=== PATIENT | female | born 1985 | race Caucasian/White ===

== ENCOUNTER 2022-02-21 11:00 | Outpatient (CLI) | payer OTHER, SELFPAY | END 2022-02-21 11:01 | disposition home or self-care (01) | LOC: NFLDREF 03-02 10:11 | PROVIDERS: Visit Provider Obstetrics & Gynecology | DX: Z34.93 Encounter for supervision of normal pregnancy, unspecified, third trimester (principal); Z3A.36 36 weeks gestation of pregnancy | CPT/HCPCS: 87081; 87653 ==

== ENCOUNTER 2022-03-15 01:11 | Inpatient (IN) | payer OTHER, SELFPAY ==
[2022-03-15] VITALS (46 sets, daily range): BP systolic 96–133; BP diastolic 52–80; PULSE 70–107; RESP 16; TEMP 36.5–37.1; O2SAT 96–100; BMI 30.9
[2022-03-15] MEDS: LACTATED RINGERS 1000 ML 1,000 ML 125 ML IV ×2 (01:41→03:26)
[2022-03-15] MEDS: AMPICILLIN 2 GM in 0.9 % SODIUM CHLORIDE Mini-bag 100 ML IVPB (01:42)
[2022-03-15 02:19] LABS: SARS PCR* Negative SARS-CoV-2 (Negative)
[2022-03-15] MEDS: ROPIVACAINE 0.2% 100 ml 100 ML 12 MG EPIDURAL (03:09)
--- NOTE | 2022-03-15 03:23 | P.ANBPRC_ITS ---
[facility] Medical History (Updated 02/28/22 @ 13:21 by Pham Kasper MD) Abnormal O'Michel glucose challenge test, antepartum Calculus of kidney (2019) History of spontaneous Missed Normal spontaneous vaginal delivery Surgical History (Updated 01/10/22 @ 10:05 by Keyla Huber) Status post dilation and curettage Social History Smoking Status: Former smoker Meds Home Medications and Allergies Home Medications Medication Instructions Recorded Confirmed Type docosahexaenoic acid 200 mg 200 mg PO DAILY 01/17/22 03/14/22 History capsule ( DHA) Allergies Allergy/AdvReac Type Severity Reaction Status Date / Time Sulfamethoxazole / Allergy Intermediate Hives Uncoded 03/14/22 09:49 trimethoprim Results Labs Labs: Laboratory Results - last 24 hr 03/15/22 01:04 SARS-CoV-2 (PCR) Negative SARS-CoV-2 Vital Signs Vital Signs: Last Vital Signs Temp 98.5 F 03/15/22 02:00 Pulse 82 03/15/22 03:22 Resp 16 03/15/22 02:00 BP 120/57 L 03/15/22 03:22 Pulse Ox 100 03/15/22 03:05 Weight: 81.193 kg Height: 161.93 cm Anesthesia Procedures Epidural Insertion Start Time: 02:45 Stop Time: 03:45 Start Date: 03/15/22 Stop Date: 03/15/22 Reason for Block: procedure for pain Patient Position: sitting Performed By: Moody Irizarry Preanesthetic Checklist: IV checked, risks and benefits discussed, monitors and equipment checked and anesthesia consent Prep: chlorhexidine gluconate Monitoring: blood pressure monitoring, continuous pulse oximetry and heart rate Approach: midline Vertebral Space: lumbar (1-5) Epidural Technique: KERRY saline Needle Type: Tuohy needle Injection Technique: continuous catheter Needle gauge: 17 Needle Length (cm): 10 cm Needle Insertion Depth (cm): 5 Catheter Gauge: 21 Catheter Type: multi-orifice Catheter at skin depth (cm): 10 Test Dose Result: negative
--- NOTE | 2022-03-15 04:00 | P.OBHP_ITS ---
OB - H&P: HPI Labor/Induction History of Present Illness Date Seen: 03/15/22 Chief Complaint: The patient is a [] year old [] para [] at [] weeks gestation by [], who presents with []. [] Chief complaint: MATERNITY Narrative: Teresa Chawla is a 37 year old female Meds Home Medications and Allergies Home Medications Medication Instructions Recorded Confirmed Type docosahexaenoic acid 200 mg 200 mg PO DAILY 01/17/22 03/14/22 History capsule ( DHA) Allergies Allergy/AdvReac Type Severity Reaction Status Date / Time Sulfamethoxazole / Allergy Intermediate Hives Uncoded 03/14/22 09:49 trimethoprim OB - H&P: Exam Physical Exam: Vital signs: Temp Pulse Resp BP Pulse Ox 98.5 F 88 16 103/56 L 100 03/15/22 02:00 03/15/22 03:47 03/15/22 02:00 03/15/22 03:47 03/15/22 03:05 Narrative: SUBJECTIVE: Teresa is being admitted to Labor and Delivery for PROM, early labor.. She is a 37 year old G 3 P 1011 woman at 39 Weeks, 2 Days gestation by LMP consistent with first-trimester ultrasound, EUNICE 03/21/2022 Her full history and physical was cmpleted by Pham Alvarado MD on 02/28/2022. Please see this for details. Patient reported that her water broke approximately 12:15am on 03/15/2022. Clear fluid. GBS (+) OB PROBLEM LIST: : [place]; Daughter: Jacquie. Baby: Girl,? Daughter calls baby Matilde Garrett G3, [id number] Blood type: O+ 1. AMA.? [id number]-21: 08/30/21:? Normal Level 2 u/s:? 10/25/2021, normal 2.? GBS positive.? Ampicillin in labor.? 3. Would like an elective IOL by her due date if her cervix is favorable. Flu vaccine: complete Covid vaccine: hesitant TDAP given 01/03/22 OBJECTIVE: Vitals per EMR Psychiatric: Alert and oriented x3 HEENT: Normocephalic, atraumatic Neck: Supple without adenopathy or thyromegaly Lungs: Clear to auscultation bilaterally Heart: Regular rate and rhythm, no murmur, rub or gallop Abdomen: Soft, nontender, and gravid Extremities: No edema or erythema SVE per nursin cm/80%/-1 Membrane status: ruptured presentation: Vtx. FHT: Baseline 130's, Decelerations: absent, Accelerations: present, Contractions: present. Category 1, Reactive. Killian: Q2-3 minutes: reported mild but getting more uncomfortable. ASSESSMENT: 37 yo G 3 P 1011 woman at 39, 2/7 weeks' gestation admitted for PROM, early labor. PLAN: 1. Ampicillin for GBS prophylaxis 2. Patient is planning an epidural for labor analgesia. 3. Pitocin for labor augmentation as need.
[2022-03-15] MEDS: AMPICILLIN 1 GM in 0.9 % SODIUM CHLORIDE Mini-bag 100 ML IVPB (05:31)
[2022-03-15] MEDS: OXYTOCIN 30 unit/500 ML in NS 30 UNIT/500 ML BAG 300 UNIT IVPB (06:05)
[2022-03-15] MEDS: CEFAZOLIN 2 GM in 0.9 % SODIUM CHLORIDE Mini-bag 100 ML IVPB (06:52)
--- NOTE | 2022-03-15 07:04 | PM.OBPRCVD ---
Procedure Delivery date: 03/15/22 Procedure Done: Global Procedure Details: Teresa is a 37 year-old G 3 P 1011 now 2 admitted on 03/15/2022 at 1:00 a.m. at 39 Weeks, to Days gestation for spontaneous rupture of membranes and spontaneous onset of labor. Cervical exam on admission was 3 cm/80 % effaced/-1 station with membranes ruptured in vertex presentation. Contractions were every 2-3 minutes. heart rate demonstrated baseline 130s bpm with moderate variability, positive accelerations, negative decelerations; a category 1 tracing. SROM occurred at 11:30 p.m. on 03/14/2022 with clear fluid. Labor Analgesia: Epidural Pitocin: No Labor onset: 03/15/2022 at 2:00 a.m.. Complete: 03/15/2022 at 4:15 a.m.. Pushin03/15/2022 at 5:46 a.m.. heart tones during second stage were: Variable decelerations to the 80s with contractions with immediate return to baseline and moderate variability between contractions: Reassuring, category 2. At 6:00 a.m. a viable female delivered in vertex direct OA presentation over second-degree perineal laceration via spontaneous vaginal delivery. The was placed on maternal abdomen. Cord was clamped and cut after a 60+ second delay. Nose and mouth were bulb suctioned. Infant weight pending. 9 at 1 minute and 9 at 5 minutes. Shoulder dystocia: No. Nuchal cord: No Placenta delivered manually and complete at 6:30 a.m. with a 3 vessel cord. Laceration(s): Second-degree perineal. Repaired using 3-0 Vicryl suture in the usual manner. Blood loss: 475 mL. Blood loss measurement type: Quantitative Sponge and needles counts are correct. Specimen: None Mother and were stable after delivery. Infant's name: Jimmy The patient is planning on breast feeding. Delivery monitor: external FHT and external uterine Route of delivery: Laceration description: Perineal - 2nd Degree Delivery repair: Vicryl Estimated blood loss (mL): 450 Anesthesia type: Epidural Disposition: floor Infant Gender: Female presentation: vertex Placental Delivery Description: Manual Removal (Ancef 2gm IV x1 after manual removal. Uterus empty via manual exploration after the placenta delivered.) Cord Description: 3 Vessels total score - 1 minute: 9 total score - 5 minute: 9
[2022-03-15] MEDS: IBUPROFEN 600 MG TABLET PO ×2 (11:37→20:01)
[2022-03-16 00:12] VITALS: BP 116/73; PULSE 75; RESP 16; TEMP 36.6; O2SAT 97
[2022-03-16] MEDS: IBUPROFEN 600 MG TABLET PO ×2 (02:20→08:06)
[2022-03-16 05:03] VITALS: BP 105/67; PULSE 75; RESP 16; TEMP 36.6; O2SAT 97
[2022-03-16 07:18] LABS: Hemoglobin* 12.3 gm/dL (12.0-16.0)
--- NOTE | 2022-03-16 07:26 | P.DS_ITS ---
DS: Providers Provider Date Seen: 03/16/22 Date of admission: 03/15/22 01:11 Primary care physician: Not a Local Provider Admitting Clinician: Pham Kasper MD Attending Physician on discharge: Pham Kasper MD Date of Discharge: 03/16/22 Exam Const: Vital Signs, click to edit/add: Vital Signs - 24 hr 03/15/22 07:30 03/15/22 07:44 03/15/22 08:00 Temperature Pulse Rate 82 77 70 Pulse Rate [Pulse Oximeter] Respiratory Rate Blood Pressure 118/69 118/69 115/69 Blood Pressure [Le ft Arm] Pulse Oximetry Oxygen Delivery Me thod 03/15/22 08:14 03/15/22 08:30 03/15/22 07:30 Temperature Pulse Rate 77 72 Pulse Rate [Pulse Oximeter] Respiratory Rate 16 Blood Pressure 111/68 117/74 Blood Pressure [Le ft Arm] Pulse Oximetry Oxygen Delivery Me thod 03/15/22 07:45 03/15/22 08:00 03/15/22 08:00 Temperature Pulse Rate Pulse Rate [Pulse Oximeter] Respiratory Rate 16 16 16 Blood Pressure Blood Pressure [Le ft Arm] Pulse Oximetry Oxygen Delivery Nv thod 03/15/22 08:15 03/15/22 08:30 03/15/22 11:47 Temperature 98.7 F 98.4 F Pulse Rate Pulse Rate [Pulse Oximeter] 72 Respiratory Rate 16 16 16 Blood Pressure Blood Pressure [Le ft Arm] 111/70 Pulse Oximetry 97 Oxygen Delivery Nv thod Room Air 03/15/22 16:21 03/15/22 20:08 03/16/22 00:12 Temperature 98.2 F 97.7 F 97.8 F Pulse Rate Pulse Rate [Pulse Oximeter] 79 75 75 Respiratory Rate 16 16 16 Blood Pressure Blood Pressure [Le ft Arm] 117/74 111/73 116/73 Pulse Oximetry 96 97 97 Oxygen Delivery Me thod Room Air Room Air Room Air 03/16/22 05:03 Temperature 98 F Pulse Rate Pulse Rate [Pulse Oximeter] 75 Respiratory Rate 16 Blood Pressure Blood Pressure [Le ft Arm] 105/67 Pulse Oximetry 97 Oxygen Delivery Me thod Room Air Documenting provider has reviewed patient's vital signs: yes Common normals: no apparent distress General appearance: cooperative HENMT: Common normals: hearing grossly normal bilaterally and external nose normal Head and scalp: normal to inspection Face and sinus: normal facial exam Nose: external nose normal Eye: General eye: normal appearance of both eyes Neck & C-Spine: Common normals: full ROM, supple and no JVD General: normal visual inspection and trachea midline Resp: Common normals: normal respiratory effort, no retractions, no use of accessory muscles and clear to auscultation bilaterally Auscultation: clear to auscultation bilaterally Cardio: Common normals: no JVD, regular rate, regular rhythm, S1 normal heart sound, S2 normal heart sound, no gallops, no clicks, no murmurs and no rub Rate: regular rate Rhythm: regular rhythm Heart sounds: S1 normal and S2 normal GI: Common normals: soft to palpation and non-tender Palpation: soft : OB/external & speculum: Yes deferred Uterus: U/2 Lochia: small Extremity: Common normals: full ROM Psych: Common normals: mental status grossly normal and thought process normal Thought process: normal thought process OB - DS: Summary Hospital Course Hospital Course: The patient is a 37 year old G 3 P 2 at 39.2 weeks gestation that was admitted to the Center on 03/15/22 for SROM. She had an uncomplicated vaginal delivery. She delivered a viable female . She is breast feeding and feels that it is going well. Her pain is well controlled with current medications.? She has no new complaints.? Urinary output is adequate and she is voiding without difficulty.? Has a good appetite, is tolerating a general diet, is passing flatus, and has not had a bowel movement.? Has?small amount of rubra lochia.? She is ambulating well.? the patient has done well. Peripartum Data delivery method: Vaginal Laceration description: Perineal - 2nd Degree Episiotomy description: None complications: retained placenta (manual removal. 2gm Ampicillin given after.) Infant Gender: Female Discharge Plan: Home Status at Discharge Functional status at discharge: independent ambulation Overall status at discharge: patient is progressing back to baseline Time Spent with Patient Time attestation: Total time spent providing and/or coordinating discharge services: Discharge Plan Discharge Disposition: Home, Self-Care Date of Admission: 03/15/22 01:11 Primary Care Provider: Provider,Not a Local Condition: Stable Anticipated Discharge Date/Time: 03/16/22 17:11 Discharge Medications: New docusate sodium 100 mg Capsule 100 mg PO BID PRN (Reason: constipation) Qty: 100 0RF ibuprofen 600 mg Tablet 600 mg PO Q6H PRN14 Days Qty: 30 0RF Continued DHA 200 mg capsule 200 mg PO DAILY Discharge Orders: Discharge Order (Routine); Ordered 03/16/22 Ordered By: Rain High Patient Education: Vaginal Delivery (DC) Activity Restrictions/Additional Instructions: Discharge instructions were reviewed with the patient including signs and symptoms of infection and home going medications. No lifting or exercise restrictions Nothing vaginally for 6 weeks: No tampons or intercourse Off Work or School for 6 weeks. Symptoms to report to doctor: -Bleeding that saturates more than one pad per hour ?-Passing clots larger than the size of a golf ball ?-Pain not relieved by prescribed medication ?-Fever above 100.4 degrees Fahrenheit ?-A foul vaginal odor ?-Difficulty in emotions, mood and functions ?-Thoughts of hurting yourself and/or ?-Painful, reddened area in your breast ?-Any drainage, redness or tenderness in your IV/epidural site ?-Severe headache that doesn't improve after taking medications ?-Changes in vision, including temporary loss of vision, blurred vision, and/or light sensitivity ?-Upper abdominal pain (usually under ribs on the right side) ?-Decrease in urination or painful, frequent urinating ?-Chest pain ?-Shortness of breath ?-Tenderness or pain with redness and/swelling in the calf(s) of your leg Follow Up with a [facility] provider for optional 2 week visit: Discuss contraceptive options, review infant feeding concerns, screen for anxiety/depression. Then with a [facility] provider in 6 weeks for physical/ exam consultation services are available to all mothers and babies for the first year after delivery.? To make an appointment, please call [phone]. Activity Level: No Restrictions and Activity as Tolerated Discharge Diet: Regular Follow Up Appointments: [facility] [Provider Group] Provider,Not a Local [Primary Care Provider] - Forms: [employer] Info Instructions
[2022-03-16 13:10] VITALS: BP 109/70; PULSE 73; RESP 16; TEMP 36.6; O2SAT 97
== END 2022-03-16 14:45 | disposition home or self-care (01) | DRG 807 ==
LOC: OB OUT 01:12 → OB 01:12
PROVIDERS: Admitting Provider Obstetrics & Gynecology; Visit Provider Obstetrics & Gynecology
DX: O42.02 Full-term premature rupture of membranes, onset of labor within 24 hours of rupture (principal); Z37.0 Single live birth; O99.824 Streptococcus B carrier state complicating childbirth; O73.0 Retained placenta without hemorrhage; O70.1 Second degree perineal laceration during delivery; Z3A.39 39 weeks gestation of pregnancy
CPT/HCPCS: 01967; 36415; 84112; 85018; 87635; A9270; J0290; J0690; J2795; J7120; S0020

== ENCOUNTER 2022-05-21 14:55 | Outpatient (CLI) | payer OTHER, SELFPAY ==
[2022-05-21 15:20] LABS: Influenza Type A Negative (Negative); Influenza Type B Negative (Negative)
== END 2022-05-21 14:56 | disposition home or self-care (01) ==
PROVIDERS: Visit Provider Family Medicine
DX: R05.9 Cough, unspecified (principal)
CPT/HCPCS: 87804

== ENCOUNTER 2022-11-08 13:08 | Outpatient (CLI) | payer OTHER, SELFPAY | END 2022-11-08 13:09 | disposition home or self-care (01) | LOC: LONREF 13:09 | PROVIDERS: PCP Nurse Practitioner Family; Visit Provider Nurse Practitioner Family | DX: M79.89 Other specified soft tissue disorders (principal) | CPT/HCPCS: 85379 ==

== ENCOUNTER 2024-08-11 10:26 | Outpatient (CLI) | payer OTHER, SELFPAY ==
[2024-08-14 05:31] LABS: HPV Source Cervical; HPV, High Risk by TMA Not Detected
== END 2024-08-11 10:27 | disposition home or self-care (01) ==
PROVIDERS: PCP Nurse Practitioner Family; Visit Provider Obstetrics & Gynecology
DX: Z12.4 Encounter for screening for malignant neoplasm of cervix (principal); Z11.51 Encounter for screening for human papillomavirus (HPV)
CPT/HCPCS: 87624; 87625; 88141; 88142

== ENCOUNTER 2025-03-12 10:56 | Outpatient (CLI) | payer OTHER, SELFPAY | END 2025-03-12 10:57 | disposition home or self-care (01) | LOC: NFLDREF 03-16 03:47 | PROVIDERS: PCP Nurse Practitioner Family; Visit Provider Nurse Practitioner Family | DX: R53.83 Other fatigue (principal); Z13.1 Encounter for screening for diabetes mellitus; Z13.6 Encounter for screening for cardiovascular disorders | CPT/HCPCS: 80061; 82947; 84443 ==